=== PATIENT | male | born 1955 | race African-American/Black ===

== ENCOUNTER → 2017-02-27 | Outpatient (CLI) | payer MEDICARE, OTHER ==
[~2017-02-27] MED LIST: AZELASTINE137 MCG/0.; BISA-LAX10 MG/SUP1 RC; BISACODYL10 MG/SUP3 PR; BISACODYL10 MG/SUPP PR; CALCIUM 500 + D1 TAB PO; CALCIUM CA500 MG/5 M JT; CALCIUM CITRATE1 T15 GT; CALCIUM CITRATE1 T15 PO; CARAFATE PO; CARDURA PO; CARDURA2 MG GT; CARDURA2 MG JT; CECLOR PO; CENTRUM MU9 MG/15 ML GT; CENTRUM240 ML JT; CENTRUM240 ML PO; CIPRO PO; CLOPIDOGREL75 MG GT; ENEMA133 M1 RC; EPIPEN0.3 MG/0.1 IM; FAST RELIEF LAX10 MG RC; FEROSUL220 MG/51 GT; FERROUS SULFATE 44 MG/ML DOB; FORTEO750 MCG/3 INJ; GENTLE LAXATIVE10 MG; IMMUNO; LACTULOSE10 G/15 M1 GT; LACTULOSE10 G/15 M1 JT; LACTULOSE10 G/15 ML JT; LACTULOSE10 G/15 ML PO; LATANOPROST2.5 ML OU; LIPITOR20 MG GT; LIPITOR20 MG JT; LOVASTATIN20 MG JT; MAPAP160 MG/51 JT; MAPAP160 MG/53 GT; MEVACOR PO; MILK OF MAGN GT; MILK OF MAGNESIA GT; MILK OF MAGNESIA JT; MILK OF MAGNESIA PO; MUCINEX DM1 TAB.SR . PO; MY FAVORITE MU237 ML JT; NEXIUM JT; NEXIUM PO; NEXIUM40 MG/PACK GT; NEXIUM40 MG/PACK JT; PLETAL100 M1 GT; PLETAL100 MG DOB; SENNA8.8 MG/5 M GT; SENNA8.8 MG/5 M JT; SENNA8.8 MG/51 JT; SINGULAIR PO; SKELAXIN PO; SMOG ENEMA PR; SUDAFED PO; TYLENOL/CODEINE1 TA1 PO; TYLENOL160 MG/5 M JT; VICODIN PO; VITAMIN D-32000 UNI1 PO; VITAMIN D-32000 UNI2 JT; VITAMIN D1000 UNI2 GT; VITAMIN D400 UNI1 JT; XALATAN OU; ZYRTEC10 M1 GT
== END | disposition home or self-care (01) ==
LOC: CSSDAY 13:19
DX: M81.0 Age-related osteoporosis without current pathological fracture (principal)
CPT/HCPCS: 96372; J0897